=== PATIENT | male | born 1960 | race Caucasian/White ===

== ENCOUNTER 2022-03-24 15:00 | Emergency (ER) | payer OTHER, SELFPAY ==
--- NOTE | ~2022-03-24 | XR_ITS ---
XR_[id number] DATE: 03/24/2022 17:53 INDICATION: Left neck pain radiating to posterior left shoulder TECHNIQUE: AP, open-mouth, odontoid, lateral and swimmer views COMPARISON: None FINDINGS: There is straightening of cervical spine which may be due to muscle spasm. C1 and C2 are no rmally aligned and the odontoid process is intact. No fracture or dislocation or locked facet or prev ertebral soft tissue swelling is evident. Moderate degenerative disc disease at C4-5 and suggestion of severe degenerative disease at C5-6 and C6-7. Uncovertebral joint spurring in the mid and lower cervical spine. IMPRESSION: Straightening of cervical spine, which may be due to muscle spasm No fracture or dislocation or locked facet or prevertebral soft tissue swelling Cervical spondylosis Reviewed, dictated and finalized at [facility]. Reviewed, dictated and finalized at location [facility]. MBLER TESTER
[2022-03-24 15:04] VITALS: BP 194/114; PULSE 65; RESP 16; TEMP 36.1; O2SAT 99
--- NOTE | 2022-03-24 17:13 | ED.NECK ---
HPI - Neck Pain/Injury General Chief Complaint: Neck Pain/Injury Stated Complaint: pinched nerve in neck Time Seen by Provider: 03/24/22 16:49 History of Present Illness HPI Narrative: 61-year-old male presents to the emergency room for evaluation of midline cervical pain since Sunday. Patient states pain started after picking up cases of water bottles repetitively for several minutes. States that he woke up the following day with midline back pain that radiated into his left arm. Denies any other known injury or trauma. Denies muscular weakness. Denies paresthesias. Patient states he went to the chiropractor twice and did not achieve any pain relief. Related Data Allergies Allergy/AdvReac Type Severity Reaction Status Date / Time [id number] Reductase AdvReac Unknown MUSCLE Unverified 04/24/14 07:19 Inhibitor CRAMPING [Akqserh-Icc-Osc Reductase Inhibitor] Review of Systems Review of Systems: CONSTITUTIONAL: Denies fever, chills, or sweats. EYES: Denies visual changes, redness, or discharge. ENT: Denies rhinorrhea, congestion, sore throat, or otalgia. CARDIOVASCULAR: Denies chest pain, palpitations, or edema. RESPIRATORY: Denies cough or dyspnea. GASTROINTESTINAL: Denies abdominal pain, nausea, vomiting, or diarrhea. GENITOURINARY: Denies dysuria or hematuria. SKIN: Denies rash or itching. MUSCULOSKELETAL: Reports neck pain NEUROLOGIC: Denies headache, numbness, dizziness, or weakness. PSYCHIATRIC: Denies anxiety or depression. Exam Narrative: GENERAL: Well-appearing, well-nourished, no physical limitations, and in no acute distress. HEAD: Normocephalic, atraumatic. EYES: Conjunctivae normal, PERRLA and EOMI. NECK: Supple. CHEST: Clear to auscultation. No respiratory distress. No wheezes rales or rhonchi. HEART: Regular rate and rhythm. No murmur heard. Normal peripheral pulses. BACK: Midline cervical tenderness that extends into the left trap muscle, no step-offs, no bony abnormality; FROM EXTREMITIES: Full range of motion of left shoulder. [employer] Operator are equal bilaterally SKIN: Warm, dry, no rash. No noted wounds NEURO: No focal deficits. Alert and oriented x3. MAEW. CN's II-XI intact bilaterally, normal gait PSYCH: Cooperative. Normal mood and affect. Course Vital Signs Vital signs: Vital Signs Temperature 36.1 C L 03/24/22 15:04 Pulse Rate 65 03/24/22 15:04 Respiratory Rate 16 03/24/22 15:04 Blood Pressure 194/114 H 03/24/22 15:04 Pulse Oximetry 99 03/24/22 15:04 Temperature 36.1 C L 03/24/22 15:04 Pulse Rate 65 03/24/22 15:04 Respiratory Rate 16 03/24/22 15:04 Blood Pressure 194/114 H 03/24/22 15:04 Pulse Oximetry 99 03/24/22 15:04 MDM - Neck Pain/Injury Imaging Data Radiologist's impression: Impressions Cervical Spine X-Ray 03/24/22 18:00 IMPRESSION: Straightening of cervical spine, which may be due to muscle spasm No fracture or dislocation or locked facet or prevertebral soft tissue swelling Cervical spondylosis Discharge Plan Discharge Clinical Impression: Strain of neck muscle, Cervical spondylosis Patient Disposition: Home, Self-Care Condition: Stable Instructions: Antibiotic Form, Cervical Strain (ED), Neck Pain (ED) Prescriptions: New methocarbamol 750 mg tablet 750 mg PO TID Qty: 15 0RF Follow-up/Referrals: Adri,Ramesh Maharaj MD [Non-Staff] - Time of Disposition: 18:14
== END 2022-03-24 18:37 | disposition home or self-care (01) ==
PROVIDERS: Emergency Provider Nurse Practitioner Family; PCP Physician Assistant
DX: S16.1XXA Strain of muscle, fascia and tendon at neck level, initial encounter (principal); M47.812 Spondylosis without myelopathy or radiculopathy, cervical region; X50.0XXA Overexertion from strenuous movement or load, initial encounter
CPT/HCPCS: 72040; 99283

== ENCOUNTER 2024-05-02 07:36 | Outpatient (CLI) | payer OTHER, SELFPAY ==
--- NOTE | ~2024-05-02 | US_ITS ---
EXAMINATION: US abdomen limited DATE: 05/02/2024 08:25 INDICATION: Abnormal liver function tests. TECHNIQUE: Multiple grayscale and Doppler ultrasound images of the abdomen were obtained. COMPARISON: CT abdomen and pelvis 08/21/2008 FINDINGS: The visualized portions of the head, body, and tail of the pancreas are normal. There is di ffuse hepatic steatosis. No liver surface nodularity. There is normal flow in main portal vein. The g allbladder is normal in size. No gallstones or gallbladder wall thickening. There is no sonographic M urphy's sign. The common duct is normal and measures 4 mm. IMPRESSION: 1. Diffuse hepatic steatosis. Reviewed, dictated and finalized at location [facility]. ATIENT CLERK
== END 2024-05-02 07:37 | disposition home or self-care (01) ==
LOC: MICIMG 07:36
PROVIDERS: PCP Internal Medicine; Visit Provider Internal Medicine
DX: K76.0 Fatty (change of) liver, not elsewhere classified (principal); R74.01 Elevation of levels of liver transaminase levels
CPT/HCPCS: 76705